=== PATIENT | female | born 1990 | race Two or more races ===

== ENCOUNTER 2019-12-31 08:27 | Emergency (ER) | payer OTHER, SELFPAY ==
[2019-12-31 08:50] VITALS: BP 124/70; PULSE 83; RESP 16; TEMP 36.8; O2SAT 98; BMI 29.2
--- NOTE | 2019-12-31 08:50 | ED.ABDPAIN ---
HPI - Abdominal Pain General Chief Complaint: Abdominal Pain Stated Complaint: abd pain Time Seen by Provider: 12/31/19 08:46 Source: patient Mode of arrival: ambulatory History of Present Illness HPI narrative: Patient presents to ED for mild lower abdominal pain described as cramping. Patient states she took 2 tests at home yesterday and they were positive. Patient states she recently had IUD placed. Patient states IUD was placed last month. Patient admits to having mild spotting since IUDs placed. Patient does not recall last time she had normal menstruation. Patient states her menstruations are irregular. MD elicited complaint: abdominal pain Pertinent past history: none Location: pelvis Radiation: none Related Data Previous Rx's Medication Instructions Recorded acetaminophen [Tylenol] 325 mg PO TID PRN #30 cap 12/31/19 Allergies Allergy/AdvReac Type Severity Reaction Status Date / Time No Known Allergies Allergy Unverified 12/07/19 18:39 Review of Systems Review of Systems Yes all other systems are reviewed and are negative Eyes: Reports as per HPI and Reports no additional eye complaints Reports system reviewed and no additional complaints, except as documented Cardiovascular: Reports as per HPI, Reports no additional cardiovascular complaints, Denies Abdominal Cramping after Meds, Denies Abdominal Distension, Denies chest pain at rest, Denies chest pain with activity, Denies Epigastric Pain, Denies dyspnea and Denies dyspnea on exertion Respiratory: Reports no additional respiratory complaints, Denies change in phlegm color, Denies chest congestion, Denies cough, Denies hemoptysis, Denies excessive phlegm production, Denies pain on inspiration, Denies pain with cough, Denies dyspnea and Denies dyspnea on exertion Gastrointestinal: Reports abdominal pain, Denies belching, Denies melena, Denies bloating, Denies hematochezia, Denies change in bowel habits, Denies tenesmus, Denies change in stool character and Denies coffee ground emesis Genitourinary: Reports no additional female genitourinary complaints, Denies dysuria, Denies urinary incontinence, Denies urinary hesitancy and Denies urinary urgency Reports system reviewed and no additional complaints, except as documented Psychiatric: Reports no additional psychiatric complaints Physical Exam Vital Signs: Vital Signs: Vital Signs Temp Pulse Resp BP Pulse Ox 12/31/19 14:00 98.2 F 57 15 113/68 12/31/19 12:00 98.3 F 63 16 117/74 100 12/31/19 11:29 61 15 127/80 100 12/31/19 10:02 98.3 F 74 16 124/76 98 12/31/19 08:50 98.2 F 83 16 124/70 98 Body Mass Index 29.2 Const: General: cooperative, healthy appearing, comfortable and no acute distress HENMT: Head: Yes normal to inspection Eyes: General: appearance normal, both eyes and all related structures Neck: Neck: Yes normal visual inspection, Yes full ROM and Yes no lymphadenopathy Chest: Chest palpation & inspection: normal inspection of the chest, normal palpation of entire chest wall and normal inspection of the chest Resp: Effort & Inspection: normal respiratory effort, able to speak in complete sentences, normal respiratory pattern, no audible wheezes and no cough Cardio: Jugular venous distension: no JVD Rate: regular rate Rhythm: regular rhythm Heart sounds: S1 normal heart sound present GI: Inspection: Yes normal to inspection, No abdominal wall ecchymosis, No Abdominal wall edema and No distended Palpation (GI): Soft to palpation, not firm, nontender, no guarding and not rigid Percussion: Yes normal to percussion : External Female Exam: normal external appearance, normal appearance of the urethra, No erythema, No externally tender, No laceration, No External ecchymosis (female), No urethral discharge, No lesion and No tender Speculum Exam - Vagina: normal vaginal discharge and No vaginal bleeding Speculum Exam - Cervix: No Cervical os open and Cervical os closed Bimanual Exam- Adnexa, other: normal adnexae OB/external & speculum: No Cervical os open and vaginal bleeding Course Course Course Narrative: Will order basic labs including beta ECG to confirm . If is confirmed patient will be sent for ultrasound to rule out ectopic . Tylenol ordered for patient and IV fluid. Presently patient is not in any distress. Reevaluation(s) Reevaluation #1: Patient's came back positive. Patient is sent for fish ultrasound to rule out ectopic . Patient is not any distress Time: 10:16 Reevaluation #2: patient's pelvic exam negative for any vaginal bleeding or discharge. Cervical os is closed. Id is in place. Patient will follow-up with outpatient site safety representative history, physical exam, and diagnostic does not indicate ectopic . urine negative for infection MDM - Abdominal Pain MDM Narrative Medical decision making narrative: patient's was confirmed. History, physical exam, and diagnostic does not indicate ectopic . Patient is safe for discharge. patient's transvaginal OB ultrasound negative for ectopic . Presently does no IUP as expected in ultrasound. Beta hCG is only 22. Early Lab Data Result diagrams: 12/31/19 09:18 12/31/19 09:17 Labs: Lab Results 12/31/19 12/31/19 12/31/19 Range/Units 09:09 09:17 09:18 WBC 4.9 (4.8-10.8) X10*3/uL RBC 3.71 L (4.20-5.50) X10*6/uL Hgb 11.0 L (12.0-16.0) g/dl Hct 32.2 L (37-47) % MCV 86.8 (80-98) fL MCH 29.6 (27.0-33.0) pg MCHC 34.2 (31.0-35.0) g/dl RDW 12.6 (11.0-16.0) % Plt Count 329 (160-400) X10*3/uL MPV 9.7 (9.4-12.3) fL Immature Gran % (Auto) 0.2 (0.0-0.4) % Neut % (Auto) 53.6 (45-73) % Lymph % (Auto) 37.3 (20-40) % [place] % (Auto) 7.3 (2-11) % Eos % (Auto) 1.2 (0-4) % Baso % (Auto) 0.4 (0-2) % Lymph # (Auto) 1.8 (1.2-4.9) X10*3/uL [place] # (Auto) 0.4 (0.1-1.2) X10*3/uL Eos # (Auto) 0.1 (0.0-0.4) X10*3/uL Baso # (Auto) 0.0 (0.0-0.2) X10*3/uL Abs Immat Gran (auto) 0.01 (0.00-0.03) X10*3/uL Absolute Neuts (auto) 2.6 (2.0-8.3) X10*3/uL Absolute Nucleated RBC 0.000 (0.0-0.012) X10*3/uL Nucleated RBC % (auto) 0.0 (0.0-0.2) /100WBC PT (10.8-13.0) SEC INR (0.9-1.1) APTT (24.1-38.0) SEC Sodium 139 (135-145) mmol/L Potassium 4.0 (3.3-5.1) mmol/l Chloride 107 (96-108) mmol/L Carbon Dioxide 26 (22-29) mmol/L Anion Gap 10 L (12-20) BUN 13 (9-16) mg/dL Creatinine 0.65 (0.5-1.4) mg/dL Estim Creat Clear Calc 125.9 Estimated GFR > 60 Random Glucose 104 (60-115) mg/dL Calcium 8.9 (8.4-10.2) mg/dL Total Bilirubin 1.1 H (0.0-1.0) mg/dL Direct Bilirubin 0.5 (0.0-0.5) mg/dL AST 13 (5-31) U/L ALT 10 (0-31) U/L Alkaline Phosphatase 108 (39-117) U/L Total Protein 7.1 (6.5-8.0) g/dL Albumin 4.4 (3.5-5.0) g/dL Lipase 10 (8-78) U/L Beta HCG, Quant 22 mIU/mL Urine Color YELLOW Urine Appearance CLEAR Urine pH 6.0 (5.0-8.0) Ur Specific [place] 1.025 (1.005-1.025) Urine Protein NEG (NEG-TRACE) MG/DL Urine Glucose (UA) NEG (NEG) MG/DL Urine Ketones NEG (NEG) MG/DL Urine Blood TRACE (NEG) Urine Nitrite NEG (NEG) Ur Leukocyte Esterase NEG (NEG) Urine RBC 0-2 (0) /HPF Urine WBC 0 (0-4) /HPF Ur Squamous Epith Cells 2+ /LPF Amorphous Sediment 1+ /LPF Urine Bacteria NONE /LPF Urine Mucus 1+ /LPF 10/11/20 Range/Units 09:18 WBC (4.8-10.8) X10*3/uL RBC (4.20-5.50) X10*6/uL Hgb (12.0-16.0) g/dl Hct (37-47) % MCV (80-98) fL MCH (27.0-33.0) pg MCHC (31.0-35.0) g/dl RDW (11.0-16.0) % Plt Count (160-400) X10*3/uL MPV (9.4-12.3) fL Immature Gran % (Auto) (0.0-0.4) % Neut % (Auto) (45-73) % Lymph % (Auto) (20-40) % [place] % (Auto) (2-11) % Eos % (Auto) (0-4) % Baso % (Auto) (0-2) % Lymph # (Auto) (1.2-4.9) X10*3/uL [place] # (Auto) (0.1-1.2) X10*3/uL Eos # (Auto) (0.0-0.4) X10*3/uL Baso # (Auto) (0.0-0.2) X10*3/uL Abs Immat Gran (auto) (0.00-0.03) X10*3/uL Absolute Neuts (auto) (2.0-8.3) X10*3/uL Absolute Nucleated RBC (0.0-0.012) X10*3/uL Nucleated RBC % (auto) (0.0-0.2) /100WBC PT 12.6 (10.8-13.0) SEC INR 1.1 (0.9-1.1) APTT 33.2 (24.1-38.0) SEC Sodium (135-145) mmol/L Potassium (3.3-5.1) mmol/l Chloride (96-108) mmol/L Carbon Dioxide (22-29) mmol/L Anion Gap (12-20) BUN (9-16) mg/dL Creatinine (0.5-1.4) mg/dL Estim Creat Clear Calc Estimated GFR Random Glucose (60-115) mg/dL Calcium (8.4-10.2) mg/dL Total Bilirubin (0.0-1.0) mg/dL Direct Bilirubin (0.0-0.5) mg/dL AST (5-31) U/L ALT (0-31) U/L Alkaline Phosphatase (39-117) U/L Total Protein (6.5-8.0) g/dL Albumin (3.5-5.0) g/dL Lipase (8-78) U/L Beta HCG, Quant mIU/mL Urine Color Urine Appearance Urine pH (5.0-8.0) Ur Specific [place] (1.005-1.025) Urine Protein (NEG-TRACE) MG/DL Urine Glucose (UA) (NEG) MG/DL Urine Ketones (NEG) MG/DL Urine Blood (NEG) Urine Nitrite (NEG) Ur Leukocyte Esterase (NEG) Urine RBC (0) /HPF Urine WBC (0-4) /HPF Ur Squamous Epith Cells /LPF Amorphous Sediment /LPF Urine Bacteria /LPF Urine Mucus /LPF Discharge Plan Discharge Clinical Impression: Qualifiers: Weeks of gestation: less than 8 weeks Qualified Code(s): Z3A.01 - Less than 8 weeks gestation of Patient Disposition: Home, Self-Care Instructions: Abdominal Pain in (ED) Additional Instructions: return to the ED immediately for vaginal bleeding, severe abdominal pain, nausea, vomiting, fever, chills, flank pain, or any other concerning symptoms. Prescriptions: New acetaminophen [Tylenol] 325 mg capsule 325 mg PO TID PRN (Reason: pain) Qty: 30 RF: 0 Referrals: Teja Prieto MD [Physician] - 2 days ( diagnosed with in the ED. Ultrasound negative for ectopic . Labs normal. UA negative for UTI. Needs follow-up for new ) Stand Alone Forms: Work/School Release Interventions: ED Discharge Assessment Last Done: 12/31/19 14:05 Discharge Date/Time: 12/31/19 14:43 Print Language: Portuguese [facility] Past Medical History Medical History (Updated 12/31/19 @ 13:12 by NADIA Tompkins) HTN complicating peripregnancy, antepartum Social History Social History Alcohol intake: never Use of substances other than those prescribed or required for medical reasons: No Advance Directives: No Advance Directives Information Provided: No
[2019-12-31] MEDS: 0.9 % Sodium Chloride 1,000 ML 999 ML IVCONT (09:20)
[2019-12-31 09:25] LABS: MANUAL DIFF FLAG NO
[2019-12-31 09:26] LABS: Basophils Percent Auto 0.4 % (0-2); Eosinophils Absolute Auto 0.1 X10*3/uL (0.0-0.4); Eosinophils Percent Auto 1.2 % (0-4); Hematocrit 32.2 % (37-47); Imm Gran Abs Auto 0.01 X10*3/uL (0.00-0.03); Imm Gran Pct Auto 0.2 % (0.0-0.4); Lymphocytes Absolute Auto 1.8 X10*3/uL (1.2-4.9); Lymphocytes Percent Auto 37.3 % (20-40); Mean Corpuscular HGB Conc 34.2 g/dl (31.0-35.0); Mean Corpuscular Hemoglobin 29.6 pg (27.0-33.0); Mean Corpuscular Volume 86.8 fL (80-98); Mean Platelet Volume 9.7 fL (9.4-12.3); Monocytes Absolute Auto 0.4 X10*3/uL (0.1-1.2); Monocytes Percent Auto 7.3 % (2-11); Neutrophils Absolute Auto 2.6 X10*3/uL (2.0-8.3); Neutrophils Percent Auto 53.6 % (45-73); Platelet Count 329 X10*3/uL (160-400); Red Blood Count 3.71 X10*6/uL (4.20-5.50); Red Cell Distribution Width 12.6 % (11.0-16.0); White Blood Count 4.9 X10*3/uL (4.8-10.8)
[2019-12-31] MEDS: Acetaminophen 325 MG TABLET 650 MG PO (09:27)
[2019-12-31 09:40] LABS: Partial Thromboplastin Time 33.2 SEC (24.1-38.0)
[2019-12-31 09:41] LABS: Glucose Urine UA NEG (NEG); Leukocyte Esterase Urine NEG (NEG); Nitrite Urine NEG (NEG); Specific Gravity - Urine 1.025 (1.005-1.025); Urine Blood TRACE (NEG); Urine Ketones NEG (NEG); Urine Protein NEG (NEG-TRACE)
[2019-12-31 09:44] LABS: INTERNATIONAL NORM RATIO 1.1 (0.9-1.1); Prothrombin Time 12.6 SEC (10.8-13.0)
[2019-12-31 09:48] LABS: Alanine Aminotransferase 10 U/L (0-31); Albumin Level 4.4 g/dL (3.5-5.0); Alkaline Phosphatase 108 U/L (39-117); Anion Gap 10 (12-20); Aspartate Amino Transferase 13 U/L (5-31); Bilirubin Direct 0.5 mg/dL (0.0-0.5); Bilirubin Total 1.1 mg/dL (0.0-1.0); Blood Urea Nitrogen 13 mg/dL (9-16); Calcium 8.9 mg/dL (8.4-10.2); Carbon Dioxide 26 mmol/L (22-29); Chloride 107 mmol/L (96-108); Creatinine Clr Calc Pharmacy 125.9; Estimated Glomerular Filt Rate > 60; Glucose Random 104 mg/dL (60-115); Lipase 10 U/L (8-78); Sodium 139 mmol/L (135-145); Total Protein 7.1 g/dL (6.5-8.0)
--- NOTE | 2019-12-31 09:49 | US_ITS ---
EXAMINATION: US OB TRANSVAGINAL US OB LESS THAN 14 WEEKS FETUS CLINICAL INFORMATION: Pain during . Lower abdominal pain. Evaluate for ectopic . COMPARISON: The report of findings from 11/04/2018. Currently, prior images are not available within [employer] PACS. TECHNIQUE: Sonographic imaging of the pelvis was performed using transabdominal and transvaginal transducers. FINDINGS: US PELVIS, TRANSABDOMINAL IMAGING On the transabdominal images, the urinary bladder is well distended and has normal wall thickness. The anteflexed, anteverted uterus has normal size and contour. The myometrial echotexture is normal. A contraceptive device is well centered within the endometrium. The ovaries have normal size and echotexture. No adnexal mass. US PELVIS, TRANSVAGINAL IMAGING On the transvaginal images, the cervix and uterus have a normal appearance. Again noted is a well-positioned intrauterine contraceptive device. No endometrial fluid or gestational sac. The right ovary measures 2.2 x 3.4 x 1.9 cm, volume of 7.3 mL. The left ovary is 3.3 x 2 x 3.5 cm, volume of 11.8 mL. Normal follicles are present within each ovary. No adnexal mass. No no pelvic free fluid. IMPRESSION: * The uterus and ovaries have a normal appearance. * No evidence of an intrauterine or ectopic . The trend of the quantitative beta hCG levels may help determine patient management decisions.
[2019-12-31 09:54] LABS: HCG Quantitative 22 mIU/mL
[2019-12-31 10:02] VITALS: BP 124/76; PULSE 74; RESP 16; TEMP 36.8; O2SAT 98
[2019-12-31 10:06] LABS: Appearance Urine CLEAR; Color Urine YELLOW
[2019-12-31 10:16] LABS: Mucus Urine 1+ /LPF; RBC Urine 0-2 /HPF (0); Squamous Epithelial Cell Urine 2+ /LPF; WBC Urine 0 /HPF (0-4)
[2019-12-31 10:17] LABS: Amorphous Sediment Urine 1+ /LPF
[2019-12-31 11:29] VITALS: BP 127/80; PULSE 61; RESP 15; O2SAT 100
[2019-12-31 12:00] VITALS: BP 117/74; PULSE 63; RESP 16; TEMP 36.8; O2SAT 100
[2019-12-31 14:00] VITALS: BP 113/68; PULSE 57; RESP 15; TEMP 36.8
== END 2019-12-31 14:43 | disposition home or self-care (01) ==
PROVIDERS: Physician Assistant; Emergency Provider Emergency Medicine; PCP Internal Medicine
DX: O26.891 Other specified pregnancy related conditions, first trimester (principal); R10.30 Lower abdominal pain, unspecified; Z3A.01 Less than 8 weeks gestation of pregnancy
CPT/HCPCS: 36415; 76801; 76817; 80053; 80076; 81001; 81003; 83690; 84702; 85025; 85610; 85730; 96360; 99284

== ENCOUNTER 2020-10-22 12:40 | Outpatient (REF) | payer OTHER, MEDICAID, SELFPAY ==
[2020-10-22 14:30] LABS: MANUAL DIFF FLAG NO
[2020-10-22 14:40] LABS: Basophils Percent Auto 0.2 % (0-2); Eosinophils Absolute Auto 0.1 X10*3/uL (0.0-0.4); Eosinophils Percent Auto 0.5 % (0-4); Hematocrit 37.5 % (37-47); Imm Gran Abs Auto 0.04 X10*3/uL (0.00-0.03); Imm Gran Pct Auto 0.3 % (0.0-0.4); Lymphocytes Absolute Auto 2.6 X10*3/uL (1.2-4.9); Lymphocytes Percent Auto 20.7 % (20-40); Mean Corpuscular HGB Conc 34.7 g/dl (31.0-35.0); Mean Corpuscular Hemoglobin 29.7 pg (27.0-33.0); Mean Corpuscular Volume 85.8 fL (80-98); Mean Platelet Volume 9.9 fL (9.4-12.3); Monocytes Absolute Auto 0.7 X10*3/uL (0.1-1.2); Monocytes Percent Auto 5.6 % (2-11); Neutrophils Absolute Auto 8.9 X10*3/uL (2.0-8.3); Neutrophils Percent Auto 72.7 % (45-73); Platelet Count 419 X10*3/uL (160-400); Red Blood Count 4.37 X10*6/uL (4.20-5.50); Red Cell Distribution Width 13.1 % (11.0-16.0); White Blood Count 12.3 X10*3/uL (4.8-10.8)
[2020-10-22 15:12] LABS: Anion Gap 13 (12-20); Blood Urea Nitrogen 6 mg/dL (9-16); Calcium 9.9 mg/dL (8.4-10.2); Carbon Dioxide 24 mmol/L (22-29); Chloride 106 mmol/L (96-108); Estimated Glomerular Filt Rate > 60; Glucose Random 86 mg/dL (60-115); Potassium 4.2 mmol/L (3.3-5.1); Sodium 139 mmol/L (135-145)
== END 2020-10-22 12:41 | disposition home or self-care (01) ==
LOC: HO.LAB 12:40
PROVIDERS: PCP Internal Medicine; Visit Provider Internal Medicine
DX: Z00.00 Encounter for general adult medical examination without abnormal findings (principal); R51.9 Headache, unspecified
CPT/HCPCS: 36415; 80048; 85025

== ENCOUNTER 2024-10-31 22:01 | Emergency (ER) | payer OTHER, MEDICAID, SELFPAY ==
--- OUTSIDE RECORDS SUMMARY | 2024-10-31 21:18 | XMS_ITS | Encounter Summary ---
Author Organization [employer] Address [address] [place] [address] Care Team Providers Care Dental Hygienist Mobile Coordinator Name Role Phone Goldie Jaquez MD Primary Care Provider Reason for Visit * Reason Comments Leg Swelling Bilateral leg pain a nd swelling since this morning L>R Encounter Details Date Type Department Care Team (Late st Contact Info) Description 10/31/2024 9:18 PM EDT - 10/31/2024 9:44 PM EDT Emergency [facility] Emergency [address] [place] [id number] Pain (Primary Dx) Discharge Disposition: Home or Self Care Social History Tobacco Use Types Packs/Day Years Used Date Smoking Tobacco: Never Smokeless Tobacco: Never Alcohol Use Standard Drinks/Week Comments Yes 0.8 (1 standard drink = 0.6 oz p ure alcohol) Housing Instability Answer Date Recorde d Are you worried that in the next 2 months you may not have stable housing? No 08/15/2024 Food Access & Nutrition Answer Date Rec orded Do you have access to a vari ety of food including fruits and vegetables? Yes 08/15/2024 Access to Healthcare Answer Date Record ed Within the last 3 months, ho w many times did you visit the emergency department for your medical care? 0 08/15/2024 Health Literacy Answer Date Recorded How often do you need to hav e someone help you when you read instructions, pamphlets, or other written material from your doctor or pharmacy? Never 08/15/2024 Caregiver: How often do you need to have someone help you when you read instructions, pamphlets, or other written material from your doctor or pharmacy? Not on file 08/15/2024 Financial Risk Answer Date Recorded How hard is it for you to pa y for the very basics like food, housing, medical care, and air conditioning / heating? Not very hard 08/15/2024 Transportation Answer Date Recorded Has the lack of transportati on kept you from meetings, work, or from getting things needed for daily living? No Has the lack of transportati on kept you from medical appointments or from getting medications? Yes 08/15/2024 Social Isolation Answer Date Recorded How often do you feel lonely or isolated from th ose around you? Never 08/15/2024 Food Risk Answer Date Recorded Within the past 12 months we worried whether our food would run out before we got money to buy more. Never true 08/15/2024 Within the past 12 months th e food we bought just didn't last and we didn't have money to get more. Never true 08/15/2024 Dependent Care Answer Date Recorded Do you need help finding or paying for care for your loved ones. For example, child care attendant school or elderly care for an older adult? No 08/15/2024 Education Answer Date Recorded Do you think completing more education or training, like finishing a GED, going to college, or learning a trade, would be helpful for you? Yes 08/15/2024 Employment and Income Answer Date Recor ded During the last four weeks, have you been actively looking for work? No 08/15/2024 Living Situation Answer Date Recorded What is your living situation? 0 08/15/2024 Comments Unknown Sex and Gender Information Value Date Recorded Sex Assigned at Not on file Legal Sex Female 1:09 PM EST Gender Identity Not on file Sexual Orientation Not on file documented as of this encounter Last Filed Vital Signs Vital Sign Reading Time Taken Comments Blood Pressure 141/95 10/31/2024 9:22 PM EDT Pulse 100 10/31/2024 9:22 PM EDT Temperature 36.9 C (98.4 F) 10/31/2024 9:22 PM EDT Respiratory Rate 18 10/31/2024 9:22 PM EDT Oxygen Saturation 100% 10/31/2024 9:22 PM EDT Inhaled Oxygen Concentration - - Weight 77.6 kg (171 lb) 10/31/2024 9:22 PM EDT Height 160 cm (5' 3 ) 10/31/2024 9:22 PM EDT Body Mass Index 30.29 10/31/2024 9:22 PM EDT documented in this encounter Medications at Time of Discharge albuterol HFA (ProAir HFA) 90 mcg/actuation inhalerIndications :Mild persistent asthma without complication Inhale 2 puffs by mouth every 4 (four) hours if needed for wheezing or shortness of breath. 8.5 g 1 08/17/2024 6 fluticasone HFA (FLOVENT HFA) 110 mcg/actuation inhalerIndications :Mild persistent asthma without complication Inhale 1 puff by mouth 2 (two) times a day. Rinse mouth with water after use to reduce aftertaste and incidence of candidiasis. Do not swallow. 1 each 12 08/17/2024 6 tirzepatide, weight loss, (Zepbound) 10 mg/0.5 mL injection Inject 0.5 mL (10 mg total) under the skin every 7 (seven) days. 2 mL 10/25/2024 5 documented as of this encounter Discharge Disposition Disposition Code Departure Means Destination Home or Self Care documented in this encounter Progress Notes * Denisha Chapa RN - 10/31/2024 9:25 PM EDT PT ARRIVES STEADY GAIT, SLOW ON AMBULATION, PT STATES SHE HAS BILAT EDEMA , LEFT GREATER THAN RIGHT, PT STATES SHE STARTED ZEPO INJECTION AND WONDERING IF THIS IS RELATED, PT DENIES INJURY, TRAUMA, FALL, DENIES ANY RECENT TRAVEL, PAIN AND EDEMA WORSENING OVER THE DAY NON SMOKER LMP 7/18, NNO CONTROL IN USE documented in this encounter Plan of Treatment Upcoming Encounters Date Type Department Care Team (Late st Contact Info) Description 12/05/2024 2:00 PM EDT Office Visit Bariatric Surgery - [place] [address] [facility] [address] [place] [address] Melva Gillespie PA [address] [place] [address] 12/19/2024 9:30 AM EDT Office Visit Adult Medicine - [place] [address] [place] [phone] Nikunj Barbour PA [address] [place] [address] Scheduled Orders Name Type Priority Associated Diagnoses Order Schedule Vascular US Duplex Lower Extremity Venous Bilateral Vascular Ultrasound STAT Pain Once for 1 Occurrences starting 10/31/2024 until 10/31/2024 CBC and differential Lab STAT STAT for 1 Occurrences starting 10/31/2024 until 10/31/2024 Basic metabolic panel Lab STAT STA T for 1 Occurrences starting 10/31/2024 until 10/31/2024 B-type natriuretic peptide Lab STAT STAT for 1 Occurrences starting 10/31/2024 until 10/31/2024 CBC auto differential Lab Routine Onc e for 1 Occurrences starting 10/31/2024 until 10/31/2024 documented as of this encounter Visit Diagnoses Diagnosis Pain- Primary Generalized pain documented in this encounter Additional Health Concerns Assessment Noted Time PHQ-9 Depression Total Score: 0 08/16/19 25 8:59 AM EDT documented as of this encounter Care Teams Dental Hygienist Mobile Coordinator Relationship Specialty Start Date End Date Goldie Jaquez MD [address] [facility] [address] [place] [address] PCP - General Internal Medicine 04/15/21 documented as of this encounter
[2024-10-31 22:10] VITALS: BP 140/90; PULSE 98; RESP 20; TEMP 36.1; O2SAT 99; BMI 30.3
[2024-10-31 22:19] LABS: MANUAL DIFF FLAG NO
[2024-10-31 22:20] LABS: Hematocrit 34.1 % (37.0-47.0); Hemoglobin 12.2 g/dl (12.0-16.0); Imm Gran Abs Auto 0.03 X10*3/uL (0.00-0.03); Imm Gran Pct Auto 0.3 % (0.0-0.4); Lymphocytes Absolute Auto 2.1 X10*3/uL (1.2-4.9); Mean Corpuscular HGB Conc 35.8 g/dl (31.0-35.0); Mean Corpuscular Hemoglobin 30.3 pg (27.0-33.0); Mean Corpuscular Volume 84.8 fL (80.0-98.0); NRBC Abs Auto 0.000 X10*3/uL (0.0-0.012); NRBC Pct Auto 0.0 /100WBC (0.0-0.2); Platelet Count 388 X10*3/uL (160-400); Red Blood Count 4.02 X10*6/uL (4.20-5.50); White Blood Count 10.5 X10*3/uL (4.8-10.8)
[2024-10-31 22:46] LABS: Alanine Aminotransferase 15 U/L (0-31); Albumin Level 4.9 g/dL (3.5-5.0); Alkaline Phosphatase 102 U/L (39-117); Anion Gap 11 (12-20); Aspartate Amino Transferase 19 U/L (5-31); Blood Urea Nitrogen 9 mg/dL (9-16); Calcium 9.4 mg/dL (8.4-10.2); Carbon Dioxide 22 mmol/L (22-29); Chloride 110 mmol/L (96-108); Creatinine Clr Calc Pharmacy 128.4; Estimated Glomerular Filt Rate > 60; Lipase 20 U/L (8-78); Potassium 3.8 mmol/L (3.3-5.1); Sodium 139 mmol/L (135-145); Total Protein 8.0 g/dL (6.5-8.0)
[2024-10-31 22:52] LABS: Appearance Urine Clear; Glucose Urine UA Negative (Negative); PH 5.5 (5.0-9.0); Specific Gravity - Urine >= 1.030 (1.005-1.025)
[2024-10-31 22:55] VITALS: BP 138/89; PULSE 77; RESP 16; TEMP 36.8; O2SAT 98
--- NOTE | 2024-10-31 22:57 | ED_ITS ---
HPI - General Adult General Chief complaint: General Medical Stated complaint: left leg pain-sent from Time Seen by Provider: 10/31/24 22:32 Source: patient Mode of arrival: ambulatory Limitations: no limitations History of Present Illness ED Provider: HPI narrative: Patient no significant past medical history comes here for diffuse pain in the muscles lower extremities also in the lower back for last several weeks patient is taking Zepbound for weight reduction no history of fibromyalgia Related Data Previous Rx's ?Medication ?Instructions ?Recorded acetaminophen 325 mg capsule 325 mg PO TID PRN pain #3 0 caps 12/31/19 (Tylenol) cyclobenzaprine 10 mg tablet 10 mg PO TID PRN muscle s pasm #30 10/18/20 tabs tramadol 50 mg tablet 50 mg PO Q8-10H PRN pain #20 tabs 11/01/24 Allergies Allergy/AdvReac Type Severity Reaction Status Date / Time No Known Allergies Allergy Verified 10/31/24 22:13 Review of Systems 2 Review of Systems: Yes all other systems are reviewed and are negative [facility] Past Medical History Medical History Obesity Physical exam Anxiety HTN complicating peripregnancy, antepartum Family History Family History Mother Mental health disorder Substance use disorder Father No problems noted. Social History Social History Housing: Apartment Alcohol intake: never Patient Tobacco Use Status: Never used Tobacco e-Cigarette/Vaping Use: Never Used Second Hand Smoke Exposure: Yes Advance Directives: No Advance Directives Information Provided: No Do you have a plan to hurt others: No Plan service: No Current occupational status: employed Physical Exam ED Vital Signs: Vital Signs - 24 hr 10/31/24 22:10 10/31/24 22:55 11/01/24 00:40 Temperature 97.0 F 98.2 F 98.2 F Pulse Rate 98 77 77 Respiratory Rate 20 16 16 Blood Pressure 140/90 H 138/89 138/89 Pulse Oximetry 99 98 98 Oxygen Delivery Method Room Air Room Air Room Air BMI result Body Mass Index 30.3 Appearance: Alert. Oriented X3. No acute distress. Eyes: PERRLA, No Nystagmus ENT: Pharynx normal. Oral Mucosa moist Neck: Normal inspection. Neck supple. CVS: Normal heart rate and rhythm. Pulses normal. Respiratory: No respiratory distress. Equal air entry bilateral, no wheezing/rales/rhonchi Abdomen: Soft and nontender. Bowel sounds are present, no mass palpable, no CVA tenderness Skin: Skin warm and dry. Normal skin color. Normal skin turgor. Extremities: No lower extremity edema. No calf tenderness diffuse muscular tenderness no swelling of the muscles noticed been muscle tenderness in the upper back lower back bilateral lower extremity Neuro: Oriented X 3. No motor deficit. No sensory deficit.No cerebellar signs , cranial nerves II-XII intact Medications Administered Discontinued Medications Generic Name Dose Route Start Last Admin Trade Name Danielq PRN Reason Stop Dose Admin Tramadol HCl 50 mg 11/01/24 00:20 11/01/24 00:38 Tramadol Hcl 50 Mg Tablet PO 11/01/24 00:21 50 mg ONCE ONE Administration Medical Decision Making Medical Decision Making [facility] Narrative: Patient with diffuse abdominal pain normal sed rate normal CPK labs were stable unlikely fibromyalgia/musculoskeletal pain with prescribe Tramadol patient advised to drink plenty of fluids Differential Diagnosis Differential Diagnoses: The differential diagnosis associated with the presentation includes Musculoskeletal pain/deep vein thrombosis/rhabdomyolysis/polymyalgia rheumatica/fibromyalgia Lab Data [facility] Lab Attestation statement: I reviewed the patient's lab results. 10/31/24 22:15 10/31/24 22:15 Labs: Lab Results 10/31/24 10/31/24 Range/Units 22:15 22:45 WBC 10.5 (4.8-10.8) X10*3/uL RBC 4.02 L (4.20-5.50) X10*6/uL Hgb 12.2 (12.0-16.0) g/dl Hct 34.1 L (37.0-47.0) % MCV 84.8 (80.0-98.0) fL MCH 30.3 (27.0-33.0) pg MCHC 35.8 H (31.0-35.0) g/dl RDW 13.0 (11.0-16.0) % Plt Count 388 (160-400) X10*3/uL MPV 10.1 (9.4-12.3) fL Immature Gran % (Auto) 0.3 (0.0-0.4) % Neut % (Auto) 70.6 (45-73) % Lymph % (Auto) 20.1 (20-40) % [place] % (Auto) 8.6 (2-11) % Eos % (Auto) 0.1 (0-4) % Baso % (Auto) 0.3 (0-2) % Lymph # (Auto) 2.1 (1.2-4.9) X10*3/uL [place] # (Auto) 0.9 (0.1-1.2) X10*3/uL Eos # (Auto) 0.0 (0.0-0.4) X10*3/uL Baso # (Auto) 0.0 (0.0-0.2) X10*3/uL Abs Immat Gran (auto) 0.03 (0.00-0.03) X10*3/uL Absolute Neuts (auto) 7.4 (2.0-8.3) x10*3/uL Absolute Nucleated RBC 0.000 (0.0-0.012) X10*3/uL Nucleated RBC % (auto) 0.0 (0.0-0.2) /100WBC ESR 13 (0-20) MM/HR Sodium 139 (135-145) mmol/L Potassium 3.8 (3.3-5.1) mmol/L Chloride 110 H (96-108) mmol/L Carbon Dioxide 22 (22-29) mmol/L Anion Gap 11 L (12-20) BUN 9 (9-16) mg/dL Creatinine 0.62 (0.5-1.4) mg/dL Estim Creat Clear Calc 128.4 Estimated GFR > 60 Random Glucose 87 (60-115) mg/dL Calcium 9.4 (8.4-10.2) mg/dL Total Bilirubin 0.9 (0.0-1.0) mg/dL AST 19 (5-31) U/L ALT 15 (0-31) U/L Alkaline Phosphatase 102 (39-117) U/L Total Creatine Kinase 53 (26-140) U/L Total Protein 8.0 (6.5-8.0) g/dL Albumin 4.9 (3.5-5.0) g/dL Lipase 20 (8-78) U/L Beta HCG, Quant < 2 mIU/mL Urine Color Yellow Urine Appearance Clear Urine pH 5.5 (5.0-9.0) Ur Specific [place] >= 1.030 H (1.005-1.025) Urine Protein Negative (Neg-Trace) mg/dL Urine Glucose (UA) Negative (Negative) mg/dL Urine Ketones Trace (Negative) mg/dL Urine Blood Negative (Negative) Urine Nitrite Negative (Negative) Ur Leukocyte Esterase Negative (Negative) Urine RBC 0-2 (0-2) /HPF Urine WBC 0-5 (0-5) /HPF Ur Squamous Epith Cells 3-5 (0-2) /HPF Urine Bacteria None Seen (None Seen) Hyaline Casts 0-2 (0-2) /LPF Discharge Plan Discharge Clinical Impression: Myalgia Patient Disposition: Home, Self-Care Instructions: Musculoskeletal Pain (ED) Additional Instructions: Cough so your pain is not clear possible you have fibromyalgia Drink plenty of fluids Tramadol for pain as prescribed Follow up with your PCP Prescriptions: New tramadol 50 mg tablet 50 mg PO Q8-10H PRN (Reason: pain) Qty: 20 0RF No Action cyclobenzaprine 10 mg tablet 10 mg PO TID PRN (Reason: muscle spasm) Qty: 30 2RF acetaminophen [Tylenol] 325 mg capsule 325 mg PO TID PRN (Reason: pain) Qty: 30 0RF Interventions: ED Discharge Assessment Last Done: 11/01/24 00:40 Discharge Date/Time: 11/01/24 00:40 Print Language: Romanian
[2024-11-01 00:40] VITALS: BP 138/89; PULSE 77; RESP 16; TEMP 36.8; O2SAT 98
== END 2024-11-01 00:40 | disposition home or self-care (01) ==
PROVIDERS: Emergency Provider Internal Medicine; PCP Family Medicine
DX: M79.18 Myalgia, other site (principal); M54.50 Low back pain, unspecified; I10 Essential (primary) hypertension; F41.9 Anxiety disorder, unspecified; Z79.899 Other long term (current) drug therapy
CPT/HCPCS: 36415; 80053; 81001; 82550; 83690; 84702; 85025; 85652; 99283